=== PATIENT | female | born 1995 | race Caucasian/White ===

== ENCOUNTER 2017-01-27 00:14 | Observation (INO) | payer BC, MEDICAID ==
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
[2017-01-29] MEDS ORDERED: PRENATAL VIT1 TAB PO (14:55)
[2017-01-29] MEDS ORDERED: TYLENOL EXTRA500 M1 PO (14:55)
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
[2017-03-30] MEDS ORDERED: MOTRIN-DPS800 MG PO (12:07)
[2017-03-30] MEDS ORDERED: NIPPLECREAM TP (12:07)
[2017-03-30] MEDS ORDERED: DERMOPLAST SPRA56 GM TP (12:07)
[2017-03-30] MEDS ORDERED: LAN-O-SOOTHE7 GM TP (12:07)
[2017-03-30] MEDS ORDERED: TUCKS1 EACH TP (12:08)
== END 2017-01-28 10:32 | disposition home or self-care (01) ==
LOC: ER 00:14 → 2LDRP 04:15
DX: O9A.213 Injury, poisoning and certain other consequences of external causes complicating pregnancy, third trimester (principal); S01.81XA Laceration without foreign body of other part of head, initial encounter; S01.512A Laceration without foreign body of oral cavity, initial encounter; Z3A.30 30 weeks gestation of pregnancy; V49.9XXA Car occupant (driver) (passenger) injured in unspecified traffic accident, initial encounter; Y08.89XA Assault by other specified means, initial encounter

== ENCOUNTER 2017-02-28 20:40 | Outpatient (CLI) | payer BC, MEDICAID ==
[~2017-02-28 20:40] MED LIST: PRENATAL VIT1 TAB PO; TYLENOL EXTRA500 M1 PO
[2017-03-30] MEDS ORDERED: NIPPLECREAM TP (12:07)
[2017-03-30] MEDS ORDERED: LAN-O-SOOTHE7 GM TP (12:07)
[2017-03-30] MEDS ORDERED: MOTRIN-DPS800 MG PO (12:07)
[2017-03-30] MEDS ORDERED: DERMOPLAST SPRA56 GM TP (12:07)
[2017-03-30] MEDS ORDERED: TUCKS1 EACH TP (12:08)
== END 2017-02-28 23:40 | disposition home or self-care (01) ==
DX: O47.03 False labor before 37 completed weeks of gestation, third trimester (principal); Z3A.35 35 weeks gestation of pregnancy

== ENCOUNTER 2017-03-12 11:40 | Outpatient (CLI) | payer BC, MEDICAID ==
[2017-03-30] MEDS ORDERED: LAN-O-SOOTHE7 GM TP (12:07)
[2017-03-30] MEDS ORDERED: DERMOPLAST SPRA56 GM TP (12:07)
[2017-03-30] MEDS ORDERED: NIPPLECREAM TP (12:07)
[2017-03-30] MEDS ORDERED: MOTRIN-DPS800 MG PO (12:07)
[2017-03-30] MEDS ORDERED: TUCKS1 EACH TP (12:08)
== END 2017-03-12 17:00 | disposition home or self-care (01) ==
LOC: 2LDRP 11:40 → BC 11:40
DX: O47.03 False labor before 37 completed weeks of gestation, third trimester (principal); Z3A.36 36 weeks gestation of pregnancy

== ENCOUNTER 2017-03-27 11:30 | Inpatient (IN) | payer BC, MEDICAID ==
[~2017-03-27] VITALS: Ht 144.8 cm; Wt 68.9 kg
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
[2017-03-30] MEDS ORDERED: DERMOPLAST SPRA56 GM TP (12:07)
[2017-03-30] MEDS ORDERED: LAN-O-SOOTHE7 GM TP (12:07)
[2017-03-30] MEDS ORDERED: NIPPLECREAM TP (12:07)
[2017-03-30] MEDS ORDERED: MOTRIN-DPS800 MG PO (12:07)
[2017-03-30] MEDS ORDERED: TUCKS1 EACH TP (12:08)
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
== END 2017-03-29 12:55 | disposition home or self-care (01) | DRG 775 ==
LOC: BC 11:30 → 2LDRP 11:30
PROC: 10E0XZZ Delivery of Products of Conception, External Approach (ICD-10-PCS; principal; 2017-03-27)
PROC: 10907ZC Drainage of Amniotic Fluid, Therapeutic from Products of Conception, Via Natural or Artificial Opening (ICD-10-PCS; principal; 2017-03-27)
DX: O69.1XX0 Labor and delivery complicated by cord around neck, with compression, not applicable or unspecified (principal); O66.0 Obstructed labor due to shoulder dystocia; Z3A.39 39 weeks gestation of pregnancy; Z37.0 Single live birth